=== PATIENT | female | born 1945 | race Caucasian/White ===

== ENCOUNTER 2016-11-28 11:50 | Emergency (ER) | payer MEDICARE, OTHER ==
[~2016-11-28] VITALS: Ht 165.1 cm; Wt 63.5 kg
[2016-11-28 12:10] VITALS: Ht 165.1 cm; Wt 63.5 kg
[2016-11-28] MEDS ORDERED: BEN25 PO (12:41)
--- NOTE | 2016-11-28 12:53 | ERD ---
ER Documentation Chief Complaint Date/Time DATE: 11/28/16 TIME: 12:45 Chief Complaint facial redness and feeling "hot" this morning HPI This patient is a 71-year-old female presenting to the emergency department with complaints of rash to bilateral cheeks. She states she began feeling hot and flushed and the rash appeared earlier today while she was eating food. She denies eating anything unusual and she denies any food allergies. She states she has had this rash in the past and it has without treatment or intervention. She has not taken anything for the rash. She denies pruritus, fevers, and all other symptoms at this time. There are no other alleviating or exacerbating factors at this time. ROS All systems reviewed and are negative except as per history of present illness. Medications Home Meds Active Scripts Diphenhydramine Hcl* (Benadryl*) 25 Mg Cap, 25 MG PO Q6, #20 CAP Prov:SHARIFA HOLLOWAY PA-C 11/28/16 Allergies Allergies: Coded Allergies: Penicillins (Verified Allergy, Severe, hives, 11/28/16) PMhx/Soc Medical and Surgical Hx: pt denies Medical Hx History of Surgery: Yes Anesthesia Reaction: No Hx Neurological Disorder: No Hx Respiratory Disorders: No Hx Cardiac Disorders: No Hx Psychiatric Problems: No Hx Miscellaneous Medical Probl: No Hx Alcohol Use: No Hx Substance Use: No Hx Tobacco Use: No Smoking Status: Never smoker FmHx Noncontributory for chief complaint Physical Exam Vitals Vital Signs Date Time Temp Pulse Resp B/P Pulse Ox O2 Delivery O2 Flow Rate FiO2 11/28/16 12:10 98.5 74 18 141/64 99 Physical Exam Const: Patient is resting comfortably in no acute distress. Head: Atraumatic Eyes: Normal Conjunctiva ENT: Normal External Ears, Nose and Mouth. Neck: Full range of motion. No meningismus. Resp: Clear to auscultation bilaterally Cardio: Regular rate and rhythm, no murmurs Abd: Soft, non tender, non distended. Normal bowel sounds Skin: There is a macular rash to bilateral cheeks without vesiculation , discharge, or warmth. Back: No midline or flank tenderness Ext: No cyanosis, or edema Neur: Awake and alert Psych: Normal Mood and Affect Procedures/MDM MDM: 71-year-old female presents to the emergency department for rash to bilateral cheeks. On physical examination it appears macular without vesiculations, pustules, or active bleeding. The rash is not raised. I am not concerned that this rash is herpetic in nature due to the fact that the patient has had in the past and it self resolved quickly. Also, the rash seemed to onset suddenly while she was eating and has since improved. I am not concerned for infection as the patient is afebrile and there is no discharge from the area. The patient is afebrile with all other vitals within normal limits. The patient will be given a prescription for Benadryl which she can take as needed at bedtime for the rash. The patient was directed to follow-up with her primary care physician for possible referral to sew on operator or other specialist as needed. The patient is in agreement with the plan. All questions were addressed. Departure Diagnosis: Primary Impression: Rosacea Additional Impression: Rash and other nonspecific skin eruption Condition: Good Patient Instructions: Self-Care for Skin Rashes Additional Instructions: FOLLOW UP WITH YOUR PRIMARY CARE PHYSICIAN AT FIRST AVAILABLE APPOINTMENT .Return to this facility if you are not improving as expected. Take all medicines as directed. You have been given a medicine which may cause drowsiness.DO NOT DRIVE OR OPERATE DANGEROUS MACHINERY while taking this medicine! Comments FU with PCP in case dermatology referral is required. SHARIFA HOLLOWAY PA-C Nov 28, 2016 12:52
== END 2016-11-28 12:57 | disposition home or self-care (01) ==
LOC: FTE 11:50
DX: L71.9 Rosacea, unspecified (principal)
CPT/HCPCS: 99283

== ENCOUNTER → 2017-07-01 | Outpatient (CLI) | payer MEDICARE, OTHER ==
[~2017-07-01] MED LIST: BEN25 PO
--- NOTE | 2017-07-01 17:23 | RADRPT ---
PROCEDURE: XR Left Hip and pelvis. CLINICAL INDICATION: Left hip pain. Pelvic pain. TECHNIQUE: Two views. Frontal pelvis and lateral left hip. COMPARISON: No prior studies are available for comparison. FINDINGS: There is no fracture or dislocation. The soft tissues are normal. There are degenerative changes of both hips with osteophytes noted. There is mild left hip joint sp teddy narrowing. There is no lytic or blastic lesion. There is no radiopaque foreign body. IMPRESSION: 1. Mild degenerative changes of the right hip. 2. Mild to moderate degenerative changes of the left hip. 3. Otherwise unremarkable study. RPTAT: QQ .Carl Trejo MD, MD Date Time Electronically viewed and signed by .Carl Trejo MD, on 07/01/2017 17:23 .R/
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
--- NOTE | 2017-07-02 05:45 | HKNOTE ---
DATE OF SERVICE: 07/01/2017 Dear Roger: Your patient, Diandra Canchola, was seen in my office today complaining of pain in the left hip. She is definitely the most difficult patient seen so far this year. She has mild arthritis of the left hip and is certainly not a candidate for left hip replacement surgery. Possibly another 2 years or so before this hip will become sufficiently severe for replacement to be a consideration. MANAGEMENT: Under sterile conditions, the patient is given injection of 2 mL of Kenalog and 4 mL 2 percent lidocaine into the left trochanteric bursa. She is given reassurance, once again, that she does not need a hip replacement. The patient will call for further treatment depending on the response to the cortisone. Dictated By: Brandon Fabian MD /garrett/anita /Document#: [id number]
== END | disposition home or self-care (01) ==
LOC: HKI 14:10
DX: M70.62 Trochanteric bursitis, left hip (principal); M16.12 Unilateral primary osteoarthritis, left hip; M54.32 Sciatica, left side
CPT/HCPCS: 20610; 73502; G0463